=== PATIENT | female | born 1940 | race Two or more races ===

== ENCOUNTER 2025-09-06 11:59 | Emergency (ER) | payer OTHER ==
[~2025-09-06] VITALS: Ht 149.9 cm; Wt 54.4 kg
[2025-09-06] MEDS ORDERED: LOSARTAN POTAS100 MG PO (12:47)
[2025-09-06] MEDS ORDERED: CARVEDILOL ER40 MG PO (12:48)
[2025-09-06] MEDS ORDERED: ANTIVERT25 M2 PO (12:48)
[2025-09-06] MEDS ORDERED: METFORMIN HCL1000 M2 PO (12:49)
[2025-09-06] MEDS ORDERED: CHLORTHALIDONE25 MG PO (12:49)
[2025-09-06 16:45] LABS: BASO % 0.4 % (0.1-1.2); EOS # 0.03 (0.04-0.54); EOS % 0.4 % (0.7-7.0); LYMPH # 1.17 (1.18-3.74); LYMPH % 16.6 % (19.3-53.1); MEAN PLATELET VOLUME 9.40 fl (9.4-12.4); MONO # 0.68 (0.24-0.82); MONO % 9.6 % (4.7-12.5); NEUT # 5.12 (1.56-6.13); NEUT % 72.7 % (34.0-71.1); RED CELL DISTRIBUTION WIDTH 12.2 % (11.6-14.4)
[2025-09-06 17:06] LABS: INR 1.09
[2025-09-06 17:10] LABS: ALT/SGPT 28.0 U/L (12-78); AST/SGOT 21.0 U/L (15-37); BILIRUBIN TOTAL 0.8 mg/dL (0.3-1.2); BUN CREA RATIO 16.0 (7.0-25.0); CREATININE SERUM 0.75 mg/dL (0.55-1.02); GFR 73.27; GLOBULINA 4.3 G/DL (2.4-3.5); GLUCOSE FASTING 146.0 mg/dL (65-100); OSMOLALITY SERUM 272.0 MOSM/KG (275-295)
[2025-09-06 17:13] LABS: URINE APPEARANCE Cloudy; URINE BILIRRUBIN Negative (NEGATIVE); URINE BLOOD Small; URINE COLOR Yellow; URINE GLUCOSE Negative (NEGATIVE); URINE KETONE Negative (NEGATIVE); URINE LEUKOCYTE Small; URINE NITRATE Negative; URINE PROTEIN 30 (NEGATIVE); URINE UROBILINOGEN 1.0 E.U./dl
[2025-09-06 17:17] LABS: URINE BACTERIA 1051.0 uL (0.0-1933); URINE EPITHELIAL CELLS 20.9 uL (0.0-38.8); URINE RBC 63.1 uL (0.0-20.8); URINE WBC 151.2 uL (0.0-23.2)
[2025-09-06 17:28] LABS: URINE CAST 0.14 uL (0.0-1.40)
[2025-09-06] MEDS ORDERED: 0.9 % SODIUM CHLORIDE 1,000 ML IV STA (18:44)
[2025-09-06] MEDS ORDERED: DEXAMETHASONE SODIUM PHOSPHATE 4 MG/ML VIAL IM STA (18:44)
[2025-09-06] MEDS ORDERED: ORPHENADRINE CITRATE 30 MG/ML AMPUL IM STA (18:45)
[2025-09-06] MEDS ORDERED: CEFTRIAXONE SODIUM 1,000 MG VIAL IV ONE (18:45)
[2025-09-06] MEDS ORDERED: KETOROLAC TROMETHAMINE 30 MG VIAL IM ONE (18:45)
[2025-09-06] MEDS ORDERED: MEDROLPACK PO (19:56)
[2025-09-06] MEDS ORDERED: CEFTRIAXONE SODIUM 1,000 MG VIAL ONE (20:01)
[2025-09-06] MEDS ORDERED: DEXAMETHASONE SODIUM PHOSPHATE 4 MG/ML VIAL ONE (20:01)
[2025-09-06] MEDS ORDERED: KETOROLAC TROMETHAMINE 30 MG VIAL ONE (20:01)
[2025-09-06] MEDS ORDERED: ORPHENADRINE CITRATE 30 MG/ML AMPUL ONE (20:01)
== END 2025-09-06 21:07 | disposition home or self-care (01) ==
LOC: ER 12:00
PROVIDERS: Physician Assistant Medical
DX: S09.8XXA Other specified injuries of head, initial encounter (principal); W18.39XA Other fall on same level, initial encounter; Y93.89 Activity, other specified; Y92.89 Other specified places as the place of occurrence of the external cause; I10 Essential (primary) hypertension; N39.0 Urinary tract infection, site not specified; E11.9 Type 2 diabetes mellitus without complications; Z79.84 Long term (current) use of oral hypoglycemic drugs
CPT/HCPCS: 36415; 70450; 71046; 72125; 73503; 93005; 96365; 96372; 99284; J0696; J1100; J1885; J2360; J7030